=== PATIENT | female | born 1995 | race Native Hawaiian/Other Pacific Islander ===

== ENCOUNTER 2023-09-18 05:21 | Emergency (ER) | payer OTHER, BC ==
[2023-09-18] MEDS ORDERED: Dexamethasone 4 mg/ml Vial ONE ×2 (05:34→05:38)
[2023-09-18] MEDS ORDERED: Albuterol 2.5 MG (0.5 mL) NEB ONE (05:34)
[2023-09-18] MEDS ORDERED: Ipratropium/Albuterol 3 ML NEB ONE (05:34)
[2023-09-18] MEDS ORDERED: Famotidine/PF 20 mg/2ml Vial ONE (05:38)
[2023-09-18] MEDS ORDERED: Albuterol 200 PUFF (6.7GM INHALER) ONE (06:27)
== END 2023-09-18 09:30 | disposition home or self-care (01) ==
LOC: NAV ERS 05:21
DX: T78.40XA Allergy, unspecified, initial encounter (principal); J45.901 Unspecified asthma with (acute) exacerbation; L30.9 Dermatitis, unspecified
CPT/HCPCS: 96374; 96375; J1100; J7611; J7620; S0028